=== PATIENT | male | born 1950 | race Two or more races ===

== ENCOUNTER → 2023-09-24 | Outpatient (CLI) | payer MEDICARE ==
[~2023-09-24] MED LIST: ASPI-1160 PO; CLOP-31 PO; FAMO-135 MT; LIP40 PO; METO25TA6 PO; NITR0.4T49 SL
== END | disposition home or self-care (01) ==
LOC: LAB 10:24
PROVIDERS: ATTEND Internal Medicine
DX: I25.10 Atherosclerotic heart disease of native coronary artery without angina pectoris (principal); E78.5 Hyperlipidemia, unspecified
CPT/HCPCS: 36415; 80061